=== PATIENT | female | born 1965 | race Caucasian/White ===

== ENCOUNTER 2018-08-19 13:57 | Emergency (ER) | payer BC ==
[~2018-08-19] VITALS: Ht 170.2 cm; Wt 95.5 kg
[2018-08-19 14:03] VITALS: Ht 170.2 cm; Wt 95.5 kg
[2018-08-19] MEDS ORDERED: CELEXA20 MG PO (14:05)
[2018-08-19] MEDS ORDERED: RANITIDINE HCL150 M1 PO (14:07)
[2018-08-19] MEDS ORDERED: METOPROLOL TART25 MG PO (14:07)
[2018-08-19] MEDS ORDERED: LISINOPRIL-HCT1 EAC4 PO (14:07)
[2018-08-19] MEDS ORDERED: KEFLEX500 MG PO (15:05)
[2018-08-19 15:15] VITALS: BP 166/70
== END 2018-08-19 15:15 | disposition home or self-care (01) ==
LOC: D.ER 13:57
DX: S61.242A Puncture wound with foreign body of right middle finger without damage to nail, initial encounter (principal); W45.0XXA Nail entering through skin, initial encounter; Y93.89 Activity, other specified; Y92.89 Other specified places as the place of occurrence of the external cause